=== PATIENT | female | born 1995 | race Caucasian/White ===

== ENCOUNTER 2023-09-13 21:51 | Emergency (ER) | payer SELFPAY ==
--- OUTSIDE RECORDS SUMMARY | 2023-09-13 21:56 | XMS REPORT | Continuity of Care Document ---
:1995 Author Organization [facility] t Address [address] [facility] [address] [place] [address] Care Team Providers Name Role Phone John Romero MD Primary Care Physician John Romero MD Attending Clinician RADHA PENN Attending Clinician Unavailable LYNDSEY CONTRERAS Attending Clinician Unavailable SCOOTER SELBY Attending Clinician Unavailable KACEY FONG Attending Clinician Unavailable Payers Payer Name Policy Type Policy Number Effective Date Expiration Date S ource Problems This patient has no known problems. Allergies, Adverse Reactions, Alerts This patient has no known allergies or adverse reactions. Family History Family Member Diagnosis Comments Start Date Stop Date Source Natural [facility] Natural mother Hypertension [facility] Social History Social Habit Start Date Stop Date Quantity Comments Source [facility] Alcohol intake 2022-07-29 2022-07-29 [facility] of [facility] 00:[facility] 00:00:00 alcohol (finding) Hospita l History of Social 2022-07-29 2022-07-[address] function 00:00:00 00:00:00 Hospital Tobacco use and 2022-07-01 2022-07-01 Smokeless tobacco [facility] exposure 00:00:00 00:00:00 non-user Hospital Alcohol Comment 2020-04-07 2020-04-[address] 00:00:00 00:00:00 Hospital Sex Assigned At [birth year] [facility] 00:[facility] Smoking Status Start Date Stop Date Source Never smoked tobacco [facility] Medications Ordered Filled Start Stop Current Ordering Indication Dosage Frequency Signature Comments Components Source Medication Medication Date Date Medication? Clinician (SIG) Name Name phentermine 2021-10- No [id number] 15mg QD Take 1 [facility] 15 MG 12-[address] capsule 00:00: 05:59 (15 mg Hospita 00 :00 total) by l mouth every morning for 30 days. phentermine 2021-10 No 15mg QD Take 1 [facility] 15 MG 11-[address] capsule 00:00: 00:00 (15 mg Hospita 00 :00 total) by l mouth every morning for 30 days. cyclobenzap 2021-10 No 5mg [id number] Take 1 [facility] 15 09-18 [id number] tablet (5 st (FLEXERIL) 00:00: 05:59 3D mg total) [facility]sp[facility] 5 mg tablet 00 :00 by mouth 3 l (three) times a day as needed for muscle spasms for up to 10 days. Immunizations Ordered Immunization Filled Immunization Date Status Commen ts Source Name Name Tdap Unknown Completed [facility] Procedures This patient has no known procedures. Plan of Care Planned Activity Planned Date Details Comments Source Future Scheduled 2023-08-20 Hepatitis C [facility] Test 09:33:04 screening (procedure) [code = 461347606] Future Scheduled 2023-08-20 Screening for [facility] Test 09:33:04 malignant neoplasm of cervix (procedure) [code = 016091977] Future Scheduled 2023-08-20 COVID-19 VACCINE (3 [facility] Test 09:33:04 - season) [code = COVID-19 VACCINE (3 - season)] Future Scheduled 2023-08-20 [facility]UENZA [facility]ACCINE [facility] Test 09:33:04 (#1) [code = INFLUENZA VACCINE (#1)] Encounters Start End Encounter Admission Attending Care Care Encounter Source Date/Time Date/Time Type Type Clinicians Facility Department ID 2022-10-19 2022-10-19 Refill Mirzaeva, 1.2.840.1 [id number] [facility] 00:00:00 00:00:00 Adolat [id number] 3.430.2.7 Hospit a .[id number] l .8 2022-07-29 2022-07-29 Outpatient DAVID, [facility] [id number] [place] 00:00:00 00:00:00 ADOLAT [address] 2022-07-01 2022-07-01 Outpatient DAVID, [facility] [id number] [place] 00:00:00 00:00:00 ADOLAT [address] 2021-01-01 2021-01-01 Emergency PENN, [place] [id number] [place] 00:00:00 00:00:00 RADHA 408 Method i 2020-11-04 2020-11-04 Emergency CONTRERAS, [facility] 06 [id number] [place] 00:00:00 00:00:00 LYNDSEY 211 Method i 2020-07-26 2020-07-26 Emergency SOLA, [facility] [id number] [place] 00:00:00 00:00:00 SCOOTER [address] 2020-04-07 2020-04-08 Emergency AJIT, [place] [address] [id number] [place] 00:00:00 00:00:00 KACEY [address] Results This patient has no known results.
[2023-09-13] MEDS ORDERED: PROMETHAZINE 25 MG TABLET ONE (22:53)
[2023-09-13] MEDS ORDERED: CYCLOBENZAPRINE 10 MG TAB ONE (22:53)
[2023-09-13] MEDS ORDERED: KETOROLAC 30 MG/ML INJ ONE (22:54)
[2023-09-13] MEDS ORDERED: CODEINE 30MG/APAP 300MG TAB ONE (22:54)
--- NOTE | 2023-09-14 00:40 | ER ---
Nurse's Notes [facility] Name: Shelley Redd Age: 27 yrs Sex: Female : 1995 Arrival Date: 09/13/2023 Time: 21:51 Bed 6 Private MD: Diagnosis: Contusion of right back wall of thorax;Mild acute lower back contusion, acute right flank contusion Presentation: 09/13 22:22 Chief complaint: Patient states: Fell this morning sideways in my living room. Now my vc1 back hurts really bad. Coronavirus screen: Vaccine status: Patient reports receiving the 2nd dose of the covid vaccine. Moderna Client denies travel out of the [place] in the last 14 days. At this time, the client does not indicate any symptoms associated with coronavirus-19. Ebola Screen: Patient negative for fever greater than or equal to 101.5 degrees Fahrenheit, and additional compatible Ebola Virus Disease symptoms Patient denies exposure to infectious person. Patient denies travel to an Ebola-affected area in the 21 days before illness onset. No symptoms or risks identified at this time. Initial Sepsis Screen: Does the patient meet any 2 criteria? No. Patient's initial sepsis screen is negative. Does the patient have a suspected source of infection? No. Patient's initial sepsis screen is negative. Risk Assessment: Do you want to hurt yourself or someone else? Patient reports no desire to harm self or others. Onset of symptoms was September 13, 2023. 22:22 Method Of Arrival: Ambulatory vc1 22:22 Acuity: MATHEW 3 vc1 Triage Assessment: 22:24 General: Appears in no apparent distress. uncomfortable, Behavior is calm, cooperative, vc1 appropriate for age. Pain: Complains of pain in right low back Pain does not radiate. Pain currently is 8 out of 10 on a pain scale. Quality of pain is described as sharp, tightness Pain began this morning. EENT: No deficits noted. No signs and/or symptoms were reported regarding the EENT system. Neuro: No deficits noted. Cardiovascular: No deficits noted. Respiratory: Airway is patent Respiratory effort is even, unlabored, Respiratory pattern is regular, symmetrical. GI: No deficits noted. No signs and/or symptoms were reported involving the gastrointestinal system. : No deficits noted. No signs and/or symptoms were reported regarding the genitourinary system. Derm: No deficits noted. No signs and/or symptoms reported regarding the dermatologic system. Musculoskeletal: Circulation, motion, and sensation intact. Range of motion: intact in all extremities, Reports pain in right low back. 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 - Social history:: Smoking status: Patient denies any tobacco usage or history of. - Family history:: not pertinent. Screenin:[address] [facility] ED Fall Risk Assessment (Adult) History of falling in the last 3 months, jw7 including since admission No falls in past 3 months (0 pts) Score/Fall Risk Level 0 - 2 = Low Risk Oriented to surroundings, Maintained a safe environment. Abuse screen: Denies threats or abuse. Denies injuries from another. Nutritional screening: No deficits noted. Tuberculosis screening: No symptoms or risk factors identified. Assessment: 22:30 General: see triage assessment . jw7 23:22 Reassessment: Patient appears in no apparent distress at this time. No changes from jw7 previously documented assessment. Patient and/or family updated on plan of care and expected duration. Pain level reassessed. Patient is alert, oriented x 3, equal unlabored respirations, skin warm/dry/pink. Neuro: Chi Agitation-Sedation Scale (RASS): 0 - Alert and Calm Level of Consciousness is awake, alert, obeys commands, Oriented to person, place, time, situation. 09/14 00:29 Reassessment: Patient appears in no apparent distress at this time. No changes from jw7 previously documented assessment. Patient and/or family updated on plan of care and expected duration. Pain level reassessed. Patient is alert, oriented x 3, equal unlabored respirations, skin warm/dry/pink. Vital Signs: 09/13 22:22 BP 148 / 87; Pulse 91; Resp 18; Temp 97.6; Pulse Ox 100% ; Weight 127.01 kg; Height 5 vc1 ft. 7 in. ; Pain 8/10; 23:22 BP 124 / 76; Pulse 84; Resp 17 S; Pulse Ox 99% on R/A; jw7 09/14 00:30 BP 134 / 86; Pulse 70; Resp 16 S; Pulse Ox 100% on R/A; jw7 09/13 22:22 Body Mass Index 43.85 (127.01 kg, 170.18 cm) vc1 09/13 22:22 Pain Scale: Adult vc1 ED Course: 09/13 21:56 Patient arrived in ED. kj1 22:03 German Hdez MD is Attending Physician. sp4 22:22 Colin Guo, DONALD is Primary Nurse. jj7 22:23 Triage completed. vc1 22:25 Arm band placed on left wrist. vc1 22:30 Patient has correct armband on for positive identification. Bed in low position. Call jw light in reach. 09/14 00:08 CT Lumbar Spine Wo Con In Process Unspecified. EDMS 00:58 No provider procedures requiring assistance completed. Patient did not have IV access j7 during this emergency room visit. Administered Medications: 09/13 22:54 Drug: Ketorolac IM 60 mg IM once {Note: 30mg in L Deltoid and 30mg in R Deltoid .} jw7 Route: IM; Site: left deltoid; 09/14 01:00 Follow up: Response: Marked relief of symptoms jj7 09/13 22:54 Drug: Cyclobenzaprine PO 10 mg PO once Route: PO; jw7 09/14 01:00 Follow up: Response: Marked relief of symptoms j7 09/13 22:54 Drug: Promethazine PO 25 mg PO once Route: PO; jw7 09/14 01:02 Follow up: Response: Marked relief of symptoms j7 09/13 22:55 Drug: Acetaminophen-Codeine PO (300 mg-30 mg) 2 tabs PO once; RASS on ADMIN: kalyani Ramirez Very Agttd3, Agttd2, Rstlss1, AlertClm0, Drwsy-1, Lt Sdtn-2, Mod Sdtn-3, Dp Sdtn-4, UnArsble-5 Route: PO; 09/14 01:01 Follow up: Response: Marked relief of symptoms j7 00:50 Drug: [place] PO 10 mg-325 mg 1 tabs PO once Route: PO; jj7 01:02 Follow up: Response: No adverse reaction j7 00:50 Drug: Diazepam PO 5 mg PO once Route: PO; jj7 01:02 Follow up: Response: No adverse reaction j 00:50 Drug: Ibuprofen PO 800 mg PO once Route: PO; j7 01:02 Follow up: Response: No adverse reaction jj7 Medication: 00:58 VIS not applicable for this client. jj7 Outcome: 00:40 Discharge ordered by sp4 00:58 Discharged to home ambulatory, with family, jj7 00:58 Condition: improved 00:58 Condition: improved 00:58 Discharge instructions given to patient, :58 Discharge instructions given to patient, Instructed on discharge instructions, medication usage, Demonstrated understanding of instructions, medications, Prescriptions given X 3, 01:02 Patient left the ED. jj7 Signatures: Dispatcher [employer] EDMS Najma Rodriguez kj1 Janis Franco RN RN vc1 Lima Ricks RN RN jw7 Colin Guo RN RN jj7 German Hdez MD MD sp4 Corrections: (The following items were deleted from the chart) 09/13 22:23 22:23 PMHx: Unable to Obtain; vc1 vc1
--- NOTE | 2023-09-14 00:40 | EDPHYS ---
Physician Documentation [facility] Name: Shelley Redd Age: 27 yrs Sex: Female : 1995 Arrival Date: 09/13/2023 Time: 21:51 Bed 6 Private MD: ED Physician German Hdez HPI: 09/13 22:04 This 27 yrs old Female presents to ER via Unassigned with complaints of Back sp4 Pain. 09/14 03:25 Patient states she has sustained an acute accidental fall onto her right posterior back sp4 prior to arrival. Now patient has right lower posterior back pain associated with pain down the right leg. Pain is worse with ambulation. Patient reports no weakness in the leg. . 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 - Social history:: Smoking status: Patient denies any tobacco usage or history of. - Family history:: not pertinent. ROS: 09/14 03:25 Constitutional: Negative for fever, chills, and weight loss, positive for back pain, sp4 right lower flank pain, positive for pain radiation down the right leg All other systems are negative, Exam: 03:25 Constitutional: This is a well developed, well nourished patient who is awake, alert, sp4 and in no acute distress. Head/Face: Normocephalic, atraumatic. Eyes: Pupils equal round and reactive to light, extra-ocular motions intact. Lids and lashes normal. Conjunctiva and sclera are not injected. Cornea within normal limits. Periorbital areas with no swelling, redness, or edema. ENT: Nares patent. No nasal discharge, no septal abnormalities noted. Tympanic membranes are normal and external auditory canals are clear. Oropharynx with no redness, swelling, or masses, exudates, or evidence of obstruction, uvula midline. Mucous membranes moist. Neck: Trachea midline, no thyromegaly or masses palpated, and no cervical lymphadenopathy. Supple, full range of motion without nuchal rigidity, or vertebral point tenderness. Chest/axilla: Normal chest wall appearance and motion. Nontender with no deformity. No lesions are appreciated. Cardiovascular: Regular rate and rhythm with a normal S1 and S2. No gallops, murmurs, or rubs. Normal PMI, no JVD. No pulse deficits. Respiratory: Lungs have equal breath sounds bilaterally, clear to auscultation and percussion. No rales, rhonchi or wheezes noted. No increased work of breathing, no retractions or nasal flaring. Abdomen/GI: Soft, non-tender, with normal bowel sounds. No distension or tympany. No guarding or rebound. No evidence of tenderness throughout. Back: No spinal tenderness. No costovertebral tenderness. Skin: Warm, dry with normal turgor. Normal color with no rashes, no lesions, and no evidence of cellulitis. MS/ Extremity: Pulses equal, no cyanosis. Neurovascular intact. Full, normal range of motion. Neuro: Awake and alert, GCS 15, oriented to person, place, time, and situation. Cranial nerves II-XII grossly intact. Motor strength 5/5 in all extremities. Sensory grossly intact. Normal gait Psych: Awake, alert, with orientation to person, place and time. Behavior, mood, and affect are within normal limits Vital Signs: 09/13 22:22 BP 148 / 87; Pulse 91; Resp 18; Temp 97.6; Pulse Ox 100% ; Weight 127.01 kg; Height 5 vc1 ft. 7 in. ; Pain 8/10; 23:22 BP 124 / 76; Pulse 84; Resp 17 S; Pulse Ox 99% on R/A; jw7 09/14 00:30 BP 134 / 86; Pulse 70; Resp 16 S; Pulse Ox 100% on R/A; jw7 09/13 22:22 Body Mass Index 43.85 (127.01 kg, 170.18 cm) vc1 09/13 22:22 Pain Scale: Adult vc1 MDM: 09/13 22:04 Patient medically screened. sp4 09/14 03:25 Differential diagnosis: arthritis, chronic back pain, Fatigue Ligament Injury Obesity sp4 ruptured disc, Scoliosis. Data reviewed: vital signs, nurses notes, lab test result(s), UPT: negative radiologic studies, CT scan. Consideration of Admission/Observation Escalation of care including admission/observation considered. ED course: Patient has normal neurologic exam and normal gait. Medications have improved the pain. Patient will be advised to have 3 days of bedrest , will discharge home with as needed pain medication. . 09/13 22:03 Order name: Test, Urine; Complete Time: 03:25 sp4 09/13 22:21 Order name: CT Lumbar Spine Wo Con sp4 Administered Medications: 09/13 22:54 Drug: Ketorolac IM 60 mg IM once {Note: 30mg in L Deltoid and 30mg in R Deltoid .} jw7 Route: IM; Site: left deltoid; 09/14 01:00 Follow up: Response: Marked relief of symptoms jj7 09/13 22:54 Drug: Cyclobenzaprine PO 10 mg PO once Route: PO; jw7 09/14 01:00 Follow up: Response: Marked relief of symptoms jj7 09/13 22:54 Drug: Promethazine PO 25 mg PO once Route: PO; jw7 09/14 01:02 Follow up: Response: Marked relief of symptoms jj7 09/13 22:55 Drug: Acetaminophen-Codeine PO (300 mg-30 mg) 2 tabs PO once; RASS on ADMIN: Combtv4, jw7 Very Agttd3, Agttd2, Rstlss1, AlertClm0, Drwsy-1, Lt Sdtn-2, Mod Sdtn-3, Dp Sdtn-4, UnArsble-5 Route: PO; 09/14 01:01 Follow up: Response: Marked relief of symptoms j7 00:50 Drug: [place] PO 10 mg-325 mg 1 tabs PO once Route: PO; jj7 01:02 Follow up: Response: No adverse reaction j 00:50 Drug: Diazepam PO 5 mg PO once Route: PO; j7 01:02 Follow up: Response: No adverse reaction j 00:50 Drug: Ibuprofen PO 800 mg PO once Route: PO; 01:02 Follow up: Response: No adverse reaction jj7 Disposition Summary: 09/14/23 00:40 Discharge Ordered Problem: new sp4 Symptoms: have improved sp4 Condition: Stable sp4 Diagnosis - Contusion of right back wall of thorax sp4 - Mild acute lower back contusion, acute right flank contusion sp4 Followup: sp4 - With: Private Physician - When: 7 - 10 days - Reason: Recheck today's complaints Discharge Instructions: - Discharge Summary Sheet sp4 - Acute Back Pain, Adult sp4 Forms: - Patient Portal Instructions sp4 Prescriptions: - Ibuprofen 800 mg Oral tablet - take 1 tablet ORAL route every 6 hours As needed take with food; 30 tablet; sp4 Refills: 0, Product Selection Permitted - Cyclobenzaprine 10 mg Oral Tablet - take 1 tablet ORAL route every 8 hours As needed; 30 tablet; Refills: 0, sp4 Product Selection Permitted - Tramadol 50 mg Oral tablet - take 1 tablet ORAL route every 6 hours as needed; 20 tablet; Refills: 0, sp4 Product Selection Permitted Signatures: Dispatcher [employer] EDJanis Lofton RN RN vc1 Lima Ricks RN RN jw7 Colin Guo RN RN jj7 German Hdez MD MD sp4 Corrections: (The following items were deleted from the chart) 09/13 22:23 22:23 PMHx: Unable to Obtain; vc1 vc1
[2023-09-14] MEDS ORDERED: HYDROCODONE/APAP 10/325 TAB ONE (00:55)
[2023-09-14] MEDS ORDERED: DIAZEPAM 5 MG TABLET ONE (00:55)
[2023-09-14] MEDS ORDERED: IBUPROFEN 400 MG TAB ONE (00:56)
[2023-09-14 01:14] VITALS: TEMP 97.6
[2023-09-14 01:17] VITALS: BP 134/86; O2SAT 100
--- NOTE | 2023-09-16 13:45 | RAD REPORT ---
EXAM DESCRIPTION: CT - Spine Lumbar Wo Con - 09/14/2023 6:34 am CLINICAL HISTORY: Female, 27 years old, lumbar pain after a fall COMPARISON: None. TECHNIQUE: CT acquisition of the lumbar spine without contrast. Coronal and sagittal reformatted sunita ges provided. This exam was performed according to departmental dose-optimization program which inclu bi automated exposure control, adjustment of the mA and/or kV according to patient size, and/or use of iterative reconstruction technique. FINDINGS: Morphology: No fracture. Vertebral body heights are normal. Transitional anatomy with 5 no nrib-bearing vertebrae and a partially lumbarized appearing S1 segment. Chronic bilateral L5 pars def ects. Alignment: No traumatic listhesis. Straightening of normal lordotic curvature. Disc Levels: Within normal limits. Other: The imaged osseous pelvis is intact. No acute finding of the imaged abdominopelvic contents an d paraspinal soft tissues. IMPRESSION: 1. No acute osseous finding of the lumbar spine. 2. Mild transitional anatomy. Bilateral L5 spondylolysis without listhesis. Electronically signed by: Eric Harrington MD 09/14/2023 12:16 AM ASSISTANT FITNESS MANAGER Due to temporary technical issues with the PACS/Fluency reporting system, reports are being signed by the in house radiologists without review as a courtesy to insure prompt reporting. The interpreting radiologist is fully responsible for the content of the report.
== END 2023-09-14 01:02 | disposition home or self-care (01) ==
LOC: ER 21:51
DX: S30.0XXA Contusion of lower back and pelvis, initial encounter (principal); S20.221A Contusion of right back wall of thorax, initial encounter; S30.1XXA Contusion of abdominal wall, initial encounter
CPT/HCPCS: 72131; 81025; 96372; 99284; Q0169

== ENCOUNTER 2023-09-24 16:40 | Emergency (ER) | payer OTHER, SELFPAY ==
--- OUTSIDE RECORDS SUMMARY | 2023-09-24 16:43 | XMS REPORT | Continuity of Care Document ---
:1995 Author Organization [facility] t Address [address] [place] [address] Care Team Providers Name Role Phone John [...] Date Stop Date Source Natural [facility] Hy[facility] Natural mother Hypert[facility] Social History Social Habit Start Date Stop [...] 00:00:00 Hospital Sex Assigned At [birth year] [facility] 00:[facility]00 [facility] Smoking Status Start Date Stop Date Source Never smoked tobacco [facility] Medications Ordered Filled Start Stop Current Ordering Indication Dosage Frequency Signature Comments Components Source Medication Medication Date Date Medication? Clinician (SIG) Name Name phentermine 2021-10 No [id number] 15mg QD Take 1 [facility] 15 MG 12-[address] capsule 00:00: 05:59 (15 mg Hospita 00 :00 total) by l mouth every morning for 30 days. phentermine 2021-10 No [id number] 15mg QD Take 1 [facility] 15 MG -11-[address] capsule 00:00: 05:59 (15 mg Hospita 00 :00 total) by l mouth every morning for 30 days. phentermine 2021-10 No 15mg QD Take 1 [facility] 15 MG 1-15 10-[address] capsule 00:00: 00:00 (15 mg Hospita 00 :00 total) by l mouth every morning for 30 days. phentermine 2021-10 No 15mg QD Take 1 [facility] 15 MG 1-15 10-[address] capsule 00:00: 00:00 (15 mg Hospita 00 :00 total) by l mouth every morning for 30 days. cyclobenzap 2021-10 No 5mg Q.[id number] Take 1 [facility] rine 1-15 11-26 [id number] tablet (5 st (FLEXERIL) 00:00: 05:59 3D mg total) H [facility]spita 5 mg tablet 00 :00 by mouth 3 l (three) times a day as needed for muscle spasms for up to 10 days. Immunizations Ordered Immunization Filled Immunization Date Status Commen ts Source Name Name Tdap Unknown Completed [facility] Tdap Unknown Completed [facility] Procedures This patient has no known procedures. Plan of Care Planned Activity Planned Date Details Comments Source Future Scheduled 2023-09-[address] [facility]spital Test 08:46:24 screening (procedure) [code = 484722284] Future Scheduled 2023-09-24 Screening for [facility] Test 08:46:24 malignant neoplasm of cervix (procedure) [code = 280965533] Future Scheduled 2023-09-24 COVID-19 VACCINE (3 [facility] Test 08:46:24 - season) [code = COVID-19 VACCINE ( season)] Future Scheduled 2023-09-24 INFLUENZA VACCINE [facility] 08:46:24 (#1) [code = INFLUENZA VACCINE (#1)] Future Scheduled 2023-08-20 [facility] Test 09:33:04 screening (procedure) [code = 344699663] Future Scheduled 2023-08-20 [facility] for [facility] Test 09:33:04 malignant neoplasm of cervix (procedure) [code = 825343019] Future Scheduled 2023-08-20 COVID-19 VACCINE (3 [facility] Test 09:33:04 - season) [code = COVID-19 VACCINE ( season)] Future Scheduled 2023-08-20 INFLUENZA VACCINE [facility] Test 09:33:04 (#1) [code = INFLUENZA VACCINE (#1)] Encounters Start End Encounter Admission Attending Care Care Encounter Source Date/Time Date/Time Type Type Clinicians Facility Department ID 2022-10-19 2022-10-19 Refill Mirzaeva, 1.2.840.1 [id number] [facility] 00:00:00 00:00:[address] 3.430.2.7 Hospit a .3.152566 l .8 2022-10-19 2022-10-19 Refill Mirzaeva, 1.2.840.1 [id number] [facility] 00:00:00 00:00:[address] 3.430.2.7 Hospit a .3.467708 l .8 2022-07-29 2022-07-29 Outpatient DAVID, [facility] [id number] [place] 00:00:00 00:00:00 ADOLAT [address] 2022-07-01 2022-07-01 Outpatient DAVID, [facility] [id number] [place] 00:00:00 00:00:00 ADOLAT [address] 2021-01-01 2021-01-01 Emergency PENN, [facility] [id number] [place] 00:00:00 00:00:00 RADHA [address] 2020-11-04 2020-11-04 Emergency CONTRERAS, [place] [id number] [place] 00:00:00 00:00:00 LYNDSEY [address] 2020-07-26 2020-07-26 Emergency SOLA, [place] [address] [id number] [place] 00:00:00 00:00:00 SCOOTER [address] 2020-04-07 2020-04-08 Emergency AJIT, [facility] [id number] [place] 00:00:00 00:00:[address] KACEY [address] Results This patient has no known results.
[2023-09-24 17:19] LABS: Absolute Lymphocytes (CBC) 1.8 K/uL (0.7-4.9); Hematocrit 38.7 % (36.0-45.0); Lymphocytes % 16.4 % (15.3-44.8); MCV 80.9 fL (80-100); MPV 8.2 fL (7.6-11.3); Platelets 237 thou/uL (152-406); RBC Red Blood Cell Count 4.79 M/uL (3.86-4.86)
[2023-09-24] MEDS ORDERED: KETOROLAC 30 MG/ML INJ ONE (17:31)
[2023-09-24] MEDS ORDERED: NA CHLORIDE 0.9% 1,000 ML ONE (17:31)
[2023-09-24] MEDS ORDERED: ONDANSETRON 4 MG/2 ML VIAL ONE (17:31)
[2023-09-24 17:34] LABS: Potassium 3.5 mEq/L (3.5-5.1)
[2023-09-24 17:55] LABS: Specific Gravity 1.015 (1.005-1.030)
[2023-09-24 17:57] LABS: Specific Gravity 1.015 (1.005-1.030); Urine Bacteria None Seen /HPF (<20); Urine Bilirubin NEGATIVE (Negative); Urine Blood 1+ (Negative); Urine Clarity Extremely Turbid (Clear); Urine Color Light-Yellow (Yellow); Urine Glucose NEGATIVE (Negative); Urine Mucus Slight /HPF (None Seen); Urine Protein NEGATIVE (Negative); Urine RBC <5 /HPF (None Seen); Urine Urobilinogen Normal (Normal)
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
[2023-09-24] MEDS ORDERED: FENTANYL CITR 100 MCG/2 ML ONE (18:18)
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
[2023-09-24] MEDS ORDERED: DIAZEPAM 5 MG TABLET ONE (19:34)
[2023-09-24] MEDS ORDERED: HYDROCODONE/APAP 5/325 MG TAB ONE (20:11)
[2023-09-24 20:29] VITALS: TEMP 98.3
[2023-09-24 20:36] VITALS: BP 130/81; O2SAT 98
== END 2023-09-24 20:14 | disposition home or self-care (01) ==
LOC: ER 16:40
DX: S16.1XXA Strain of muscle, fascia and tendon at neck level, initial encounter (principal); R29.91 Unspecified symptoms and signs involving the musculoskeletal system; V49.49XA Driver injured in collision with other motor vehicles in traffic accident, initial encounter
CPT/HCPCS: 96361; 85025; 81001; 80048; 36415; 86900; 86850; 81025; 86901; 70450; 71250; 72125; 96375; 96374; 99284; J3010; J2405; J7030

== ENCOUNTER → 2023-11-24 | Emergency (ER) | payer SELFPAY ==
[~2023-11-24] MED LIST: ACETAMINOPHEN 500 MG TAB ONE; AZITHROMYCIN 250 MG TAB ONE
[2023-11-24 11:02] LABS: Specific Gravity 1.012 (1.005-1.030)
[2023-11-24 11:03] LABS: Specific Gravity 1.012 (1.005-1.030); Urine Bacteria None Seen /HPF (<20); Urine Bilirubin NEGATIVE (Negative); Urine Blood 3+ (Negative); Urine Clarity Turbid (Clear); Urine Color Light-Yellow (Yellow); Urine Glucose NEGATIVE (Negative); Urine Protein NEGATIVE (Negative); Urine RBC <5 /HPF (None Seen); Urine Urobilinogen Normal (Normal)
--- NOTE | 2023-11-24 11:19 | RAD REPORT ---
EXAM DESCRIPTION: RAD - Chest Pa And Lat (2 Views) - 11/24/2023 11:06 am CLINICAL HISTORY: COUGH COMPARISON: No comparisons FINDINGS: Lines: None. Lungs: No evidence of edema or pneumonia. Pleural: No significant pleural effusions or pneumothorax. Cardiac: The heart size is within normal limits. Mediastinum: Within normal limits. Bones: No acute fractures. Other: None IMPRESSION: No acute cardiopulmonary disease.
[2023-11-24 11:51] LABS: SARS-CoV-2 Antigen Rapid Res Negative (Negative)
--- NOTE | 2023-11-24 12:12 | EDPHYS ---
Physician Documentation [facility] Name: Shelley Redd Age: 28 yrs Sex: Female : 1995 Arrival Date: 11/24/2023 Time: 10:23 Bed 19 Private MD: ED Physician Aaron Preston HPI: 11/24 12:06 This 28 yrs old Female presents to ER via Ambulatory with complaints of Fever, Cough, denise Congestion. 12:06 The patient reports fever, that was measured at 100 degrees Fahrenheit. Onset: The denise symptoms/episode began/occurred 2 day(s) ago. Modifying factors: there are no obvious modifying factors. Associated signs and symptoms: Pertinent positives: chills, cough, runny nose. Severity of symptoms: At their worst the symptoms were moderate in the emergency department the symptoms have improved mildly. The patient has not experienced similar symptoms in the past. 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 - Social history:: Smoking status: Patient denies any tobacco usage or history of. ROS: 12:08 Constitutional: Negative for fever, chills, and weight loss, Eyes: Negative for injury, denise pain, redness, and discharge, ENT: Negative for injury, pain, and discharge, Neck: Negative for injury, pain, and swelling, Cardiovascular: Negative for chest pain, palpitations, and edema, Abdomen/GI: Negative for abdominal pain, nausea, vomiting, diarrhea, and constipation, Back: Negative for injury and pain, : Negative for injury, bleeding, discharge, and swelling, MS/Extremity: Negative for injury and deformity, Skin: Negative for injury, rash, and discoloration, Neuro: Negative for headache, weakness, numbness, tingling, and seizure, Psych: Negative for depression, anxiety, suicide ideation, homicidal ideation, and hallucinations, Allergy/Immunology: Negative for hives, rash, and allergies, Endocrine: Negative for neck swelling, polydipsia, polyuria, polyphagia, and marked weight changes, Hematologic/Lymphatic: Negative for swollen nodes, abnormal bleeding, and unusual bruising, 12:08 Respiratory: Positive for cough, with no reported sputum, Exam: 12:08 Constitutional: This is a well developed, well nourished patient who is awake, alert, denise and in no acute distress. Head/Face: Normocephalic, atraumatic. Eyes: Pupils equal round and reactive to light, extra-ocular motions intact. Lids and lashes normal. Conjunctiva and sclera are non-icteric and not injected. Cornea within normal limits. Periorbital areas with no swelling, redness, or edema. ENT: Nares patent. No nasal discharge, no septal abnormalities noted. Tympanic membranes are normal and external auditory canals are clear. Oropharynx with no redness, swelling, or masses, exudates, or evidence of obstruction, uvula midline. Mucous membranes moist. Neck: Trachea midline, no thyromegaly or masses palpated, and no cervical lymphadenopathy. Supple, full range of motion without nuchal rigidity, or vertebral point tenderness. No Meningismus. Chest/axilla: Normal chest wall appearance and motion. Nontender with no deformity. No lesions are appreciated. Cardiovascular: Regular rate and rhythm with a normal S1 and S2. No gallops, murmurs, or rubs. Normal PMI, no JVD. No pulse deficits. Abdomen/GI: Soft, non-tender, with normal bowel sounds. No distension or tympany. No guarding or rebound. No evidence of tenderness throughout. Back: No spinal tenderness. No costovertebral tenderness. Full range of motion. Skin: Warm, dry with normal turgor. Normal color with no rashes, no lesions, and no evidence of cellulitis. MS/ Extremity: Pulses equal, no cyanosis. Neurovascular intact. Full, normal range of motion. Neuro: Awake and alert, GCS 15, oriented to person, place, time, and situation. Cranial nerves II-XII grossly intact. Motor strength 5/5 in all extremities. Sensory grossly intact. Cerebellar exam normal. Normal gait. Psych: Awake, alert, with orientation to person, place and time. Behavior, mood, and affect are within normal limits. 12:08 Respiratory: the patient does not display signs of respiratory distress, Respirations: normal, Breath sounds: are clear throughout, no bronchial sounds, no decreased breath sounds, no rales, rhonchi, no stridor, no wheezing, Vital Signs: 10:33 BP 146 / 96; Pulse 75; Resp 16; Temp 98.7; Pulse Ox 100% ; Weight 129.27 kg; Height 5 ll1 ft. 7 in. ; Pain 5/10; 10:50 BP 140 / 90; Pulse 72; Resp 18; Temp 98.6(O); Pulse Ox 99% on R/A; rs5 11:50 BP 137 / 75; Pulse 92; Resp 16; Pulse Ox 99% on R/A; me1 10:33 Body Mass Index 44.64 (129.27 kg, 170.18 cm) ll1 10:33 Pain Scale: Adult ll1 MDM: 10:28 Patient medically screened. [facility] 12:09 Antibiotic administration: The patient is discharged and will get outpatient [facility] antibiotics, Zithromax. Differential diagnosis: bronchitis, flu, URI, viral Infection, bacterial infection, URI, bronchitis, pneumonia. Differential Diagnosis: Obstructed Airway Bronchitis Influenza Upper Respiratory Infection Sinusitis Pharyngitis Otitis Media Asthma Exacerbation Viral Syndrome. Data reviewed: vital signs, nurses notes, lab test result(s), Flu: negative. Consideration of Admission/Observation Escalation of care including admission/observation considered. I considered the following discharge prescriptions or medication management in the emergency department Medications were administered in the Emergency Department. See MAR. Independent interpretation of the following test(s) in the Emergency Department X-Ray: My interpretation is cxr neg. Test considered but Not performed: Labs: no cbc, no comp met. 11/24 10:32 Order name: Urinalysis w/ reflexes; Complete Time: 11:07 [facility] 11/24 10:32 Order name: PREGU; Complete Time: 11:07 [facility] 11/24 10:32 Order name: SARS RAPID; Complete Time: 12:05 [facility] 11/24 10:32 Order name: Flu; Complete Time: 12:05 [facility] 11/24 10:32 Order name: Chest Pa And Lat (2 Views) XRAY; Complete Time: 11:49 [facility] Administered Medications: 10:40 Drug: AZITHromycin PO 500 mg PO once Route: PO; rs5 12:36 Follow up: Response: No adverse reaction me1 10:40 Drug: Acetaminophen PO 1000 mg PO once Route: PO; rs5 12:36 Follow up: Response: No adverse reaction me1 Disposition Summary: 02/01/24 12:11 Discharge Ordered Notes: Location: Home [facility] Problem: new [facility] Symptoms: have improved denise Condition: Stable denise Diagnosis - Acute upper respiratory infection, unspecified denise - Cough denise - Fever, unspecified denise Followup: [facility] - With: Private Physician - When: 2 - 3 days - Reason: Recheck today's complaints, Continuance of care, Re-evaluation by your physician Discharge Instructions: - Discharge Summary Sheet denise - Fever, Adult denise - Upper Respiratory Infection, Adult denise - Cool Mist Vaporizer denise - Upper Respiratory Infection, Adult, Zhyw-sc-Ogyn denise - Cough, Adult, Pzkq-qd-Aesp denise - Viral Respiratory Infection, Fijt-Ee-Mkpy denise - Cough, Adult denise - Fever, Adult, Lopj-ki-Bknq denise Forms: - Medication Reconciliation Form [facility] - Thank You Letter [facility] - Antibiotic Education [facility] - Prescription Opioid Use [facility] - Patient Portal Instructions denise - Leadership Thank You Letter denise - Work release form me1 Prescriptions: - Radha-D 12 Hour 60-120 mg Oral Tablet Sustained Release 12 hr - take 1 tablet ORAL route every 12 hours As needed; 20 tablet; Refills: 0, [facility] Product Selection Permitted - Tessalon Perles 100 mg Oral capsule - take 2 capsule ORAL route every 8 hours As needed; 30 capsule; Refills: 0, [facility] Product Selection Permitted - Zithromax 500 mg Oral tablet - take 1 tablet ORAL route once daily for 4 days; 4 tablet; Refills: 0, Product [facility] Selection Permitted Signatures: Dispatcher [employer] Aaron Whiteside MD MD cha Lewis, Lynsay RN RN ll1 Rajendra Orellana RN RN rs5 Nina Kaur RN me1 Corrections: (The following items were deleted from the chart) 10:33 10:33 PMHx: Unable to Obtain; 1 ll1
--- NOTE | 2023-11-24 12:12 | ER ---
Nurse's Notes [facility] Name: Shelley Redd Age: 28 yrs Sex: Female : 1995 Arrival Date: 11/24/2023 Time: 10:23 Bed 19 Private MD: Diagnosis: Acute upper respiratory infection, unspecified;Cough;Fever, unspecified Presentation: 11/24 10:33 Chief complaint: Patient states: Cough, LEONG, sore throat started yesterday. 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 Coronavirus screen: Vaccine status: Patient reports receiving the 2nd dose of the covid vaccine. Client denies travel out of the [place] in the last 14 days. congestion, cough unrelated to allergies, fatigue, fever, headache, sore throat, Client presents with at least one sign or symptom that may indicate coronavirus-19. Standard/surgical mask placed on the client. Ebola Screen: Patient denies travel to an Ebola-affected area in the 21 days before illness onset. Initial Sepsis Screen: Does the patient meet any 2 criteria? No. Patient's initial sepsis screen is negative. Does the patient have a suspected source of infection? Yes: Productive cough/pneumonia. Risk Assessment: Do you want to hurt yourself or someone else? Patient reports no desire to harm self or others. Onset of symptoms was November 23, 2023. 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 - Social history:: Smoking status: Patient denies any tobacco usage or history of. Screenin:30 [facility] ED Fall Risk Assessment (Adult) History of falling in the last 3 months, rs5 including since admission No falls in past 3 months (0 pts) Confusion or Disorientation No (0 pts) Intoxicated or Sedated No (0 pts) Impaired Gait No (0 pts) Mobility Assist Device Used No (0 pt) Altered Elimination No (0 pt) Score/Fall Risk Level 0 - 2 = Low Risk Oriented to surroundings, Maintained a safe environment. Abuse screen: Denies threats or abuse. Nutritional screening: No deficits noted. Tuberculosis screening: No symptoms or risk factors identified. Assessment: 10:30 General: Appears in no apparent distress. comfortable, Behavior is calm, cooperative. rs5 Pain: Complains of pain in generalized body aches Pain does not radiate. Pain currently is 3 out of 10 on a pain scale. Quality of pain is described as aching, Is continuous. Neuro: Level of Consciousness is awake, alert, obeys commands, Oriented to person, place, time, situation. Cardiovascular: Heart tones S1 S2 present Patient's skin is warm and dry. Rhythm is regular. Respiratory: Airway is patent Respiratory effort is even, unlabored, Respiratory pattern is regular, symmetrical, Breath sounds are clear bilaterally. GI: Abdomen is round non-distended, Bowel sounds present X 4 quads. Abd is soft and non tender X 4 quads. : No signs and/or symptoms were reported regarding the genitourinary system. EENT: No signs and/or symptoms were reported regarding the EENT system. Derm: Skin is intact, Skin is pink, warm \T\ dry. 10:30 Musculoskeletal: Range of motion: intact in all extremities. rs5 Vital Signs: 10:33 BP 146 / 96; Pulse 75; Resp 16; Temp 98.7; Pulse Ox 100% ; Weight 129.27 kg; Height 5 ll1 ft. 7 in. ; Pain 5/10; 10:50 BP 140 / 90; Pulse 72; Resp 18; Temp 98.6(O); Pulse Ox 99% on R/A; rs5 11:50 BP 137 / 75; Pulse 92; Resp 16; Pulse Ox 99% on R/A; me1 10:33 Body Mass Index 44.64 (129.27 kg, 170.18 cm) ll1 10:33 Pain Scale: Adult ll1 ED Course: 10:24 Patient arrived in ED. rg4 10:28 Aaron Preston MD is Attending Physician. denise 10:30 Patient has correct armband on for positive identification. Bed in low position. Call rs5 light in reach. Side rails up X2. 10:33 Arm band placed on Patient placed in an exam room, on a stretcher. ll1 10:35 Triage completed. ll1 10:35 Orellana, Rajendra, RN is Primary Nurse. rs5 10:50 No provider procedures requiring assistance completed. rs5 11:07 Chest Pa And Lat (2 Views) XRAY In Process Unspecified. EDMS 12:41 Patient did not have IV access during this emergency room visit. me1 12:42 Provided Education on: POC. Verbalized understanding. . me1 Administered Medications: 10:40 Drug: AZITHromycin PO 500 mg PO once Route: PO; rs5 12:36 Follow up: Response: No adverse reaction me1 10:40 Drug: Acetaminophen PO 1000 mg PO once Route: PO; rs5 12:36 Follow up: Response: No adverse reaction me1 Medication: 10:50 VIS not applicable for this client. rs5 Outcome: 12:11 Discharge ordered by . denise 12:41 Discharged to home ambulatory, with significant other, [facility] 12:41 Condition: stable 12:41 Discharge instructions given to patient, significant other, Instructed on discharge instructions, follow up and referral plans. medication usage, Demonstrated understanding of instructions, follow-up care, medications, Prescriptions given X 3, 12:42 Patient left the ED. me1 Signatures: Dispatcher [employer] Aaron Whiteside MD MD cha Garcia, Rubi rg4 Filemon Cardoza RN RN ll1 Rajendra Orellana, RN RN rs5 Nina Kaur, DONALD RN me1 Corrections: (The following items were deleted from the chart) 10:33 10:33 PMHx: Unable to Obtain; 1 ll1
[2023-11-24 13:27] VITALS: BP 137/75; TEMP 98.6; O2SAT 99
== END ==
LOC: ER 10:23
DX: J06.9 Acute upper respiratory infection, unspecified (principal); R05.9 Cough, unspecified; Z11.52 Encounter for screening for COVID-19
CPT/HCPCS: 36415; 71046; 81001; 81025; 87804; 87811

== ENCOUNTER → 2024-01-08 | Emergency (ER) | payer SELFPAY ==
--- NOTE | 2024-01-08 23:36 | EDPHYS ---
Physician Documentation [facility] Name: Shelley Redd Age: 28 yrs Sex: Female : 1995 Arrival Date: 01/08/2024 Time: 22:08 Bed DX3 Private MD: ED Physician Celine Mcintyre HPI: 01/07 23:35 This 28 yrs old Female presents to ER via Ambulatory with complaints of Flu Symptoms. kb 23:35 Pt is a 28 year old female who presents with cough and congestion that started today. kb denies fever, chills, bodyaches, shortness of breath. Historical: - Allergies: 22:16 No Known Allergies; cm10 - Home Meds: 22:16 None [Active]; cm10 - PMHx: 22:16 None; cm10 - PSHx: 22:16 Appendectomy; cm10 - Immunization history:: Adult Immunizations up to date. - Social history:: Smoking status: Patient denies any tobacco usage or history of. ROS: 23:35 Constitutional: As per HPI kb Exam: 23:35 Constitutional: This is a well developed, well nourished patient who is awake, alert, kb and in no acute distress. Head/Face: Normocephalic, atraumatic. ENT: Moist Mucous membranes Cardiovascular: Regular rate Respiratory: Respirations even and unlabored. No increased work of breathing. Talking in full sentences Abdomen/GI: Soft, non-tender. No distention Skin: Warm, dry with normal turgor. Normal color. MS/ Extremity: Pulses equal, no cyanosis. Neurovascular intact. Full, normal range of motion. Neuro: Awake and alert, GCS 15, oriented to person, place, time, and situation. Moves all extremities. Normal gait. Vital Signs: 22:14 BP 134 / 107; Pulse 96; Resp 16; Temp 97.1; Pulse Ox 100% on R/A; Weight 127.01 kg; cm10 Height 5 ft. 7 in. ; Pain 6/10; 22:14 Body Mass Index 43.85 (127.01 kg, 170.18 cm) cm10 22:14 Pain Scale: Adult cm10 MDM: 22:12 Patient medically screened. kb 23:35 Differential Diagnosis: Other Flu, COVID, URI. Data reviewed: vital signs, nurses kb notes. Counseling: I had a detailed discussion with the patient and/or guardian regarding the historical points, exam findings, and any diagnostic results supporting the discharge/admit diagnosis, lab results, the need for outpatient follow up, a family practitioner, to return to the emergency department if symptoms worsen or persist or if there are any questions or concerns that arise at home. 01/07 22:17 Order name: Flu kb 01/07 22:17 Order name: COVID-19 SARS RT PCR; Complete Time: 23:36 kb Administered Medications: No medications were administered Disposition Summary: 01/08/24 23:36 Discharge Ordered Notes: Location: Home kb Condition: Stable kb Diagnosis - SARS-associated coronavirus as the cause of diseases classified elsewhere kb Followup: kb - With: Emergency Department - When: As needed - Reason: Worsening of condition Followup: kb - With: Private Physician - When: 2 - 3 days - Reason: Recheck today's complaints, Continuance of care, Re-evaluation by your physician Discharge Instructions: - Discharge Summary Sheet kb - COVID-19 kb - Viral Illness, Adult kb Forms: - Medication Reconciliation Form kb - Thank You Letter kb - Antibiotic Education kb - Prescription Opioid Use kb - Patient Portal Instructions kb - Leadership Thank You Letter kb Signatures: Dispatcher [employer] Vicki Casas, CURRICULUM DEVELOPER-C LIV-Jessica Muñoz, RN RN cm10
--- NOTE | 2024-01-08 23:36 | ER ---
Nurse's Notes [facility] Name: Shelley Redd Age: 28 yrs Sex: Female : 1995 Arrival Date: 01/08/2024 Time: 22:08 Bed DX3 Private MD: Diagnosis: SARS-associated coronavirus as the cause of diseases classified elsewhere Presentation: 01/07 22:14 Chief complaint: Patient states: Cough and congestion onset today. Pt denies fever and cm10 chills. Coronavirus screen: Client denies travel out of the [place] in the last 14 days. congestion, cough unrelated to allergies. Ebola Screen: Patient denies travel to an Ebola-affected area in the 21 days before illness onset. No symptoms or risks identified at this time. Initial Sepsis Screen: Does the patient meet any 2 criteria? HR > 90 bpm. Does the patient have a suspected source of infection? No. Patient's initial sepsis screen is negative. Risk Assessment: Do you want to hurt yourself or someone else? Patient reports no desire to harm self or others. Onset of symptoms was January 08, 2024. 22:14 Method Of Arrival: Ambulatory cm10 22:14 Acuity: MATHEW 4 cm10 Triage Assessment: 22:16 General: Appears in no apparent distress. comfortable, Behavior is calm, cooperative. cm10 Pain: Complains of pain in chest. Pain: Aggravated by cough. Neuro: No deficits noted. Level of Consciousness is awake, alert, obeys commands, Oriented to person, place, time, situation. Respiratory: No deficits noted. Airway is patent Respiratory effort is even, unlabored, Respiratory pattern is regular, symmetrical. Historical: - Allergies: 22:16 No Known Allergies; cm10 - Home Meds: 22:16 None [Active]; cm10 - PMHx: 22:16 None; cm10 - PSHx: 22:16 Appendectomy; cm10 - Immunization history:: Adult Immunizations up to date. - Social history:: Smoking status: Patient denies any tobacco usage or history of. Screenin:36 [facility] ED Fall Risk Assessment (Adult) History of falling in the last 3 months, cm10 including since admission No falls in past 3 months (0 pts) Confusion or Disorientation No (0 pts) Intoxicated or Sedated No (0 pts) Impaired Gait No (0 pts) Mobility Assist Device Used No (0 pt) Altered Elimination No (0 pt) Score/Fall Risk Level 0 - 2 = Low Risk Oriented to surroundings, Maintained a safe environment, Hourly rounding (assess needs \T\ fall precautionary measures) done. Abuse screen: Denies threats or abuse. Denies injuries from another. Nutritional screening: No deficits noted. Tuberculosis screening: No symptoms or risk factors identified. Assessment: 22:34 General: Appears in no apparent distress. comfortable, Behavior is calm, cooperative. cm10 Neuro: No deficits noted. Level of Consciousness is awake, alert, obeys commands, Oriented to person, place, time, situation. Cardiovascular: No deficits noted. Patient's skin is warm and dry. Respiratory: No deficits noted. Reports cough that is Airway is patent Respiratory effort is even, unlabored, Respiratory pattern is regular, symmetrical, Breath sounds are clear bilaterally. GI: No deficits noted. No signs and/or symptoms were reported involving the gastrointestinal system. : No deficits noted. No signs and/or symptoms were reported regarding the genitourinary system. EENT: No deficits noted. Reports nasal congestion. EENT:. Derm: No deficits noted. Skin is intact, Skin is pink, warm \T\ dry. Musculoskeletal: No deficits noted. No signs and/or symptoms reported regarding the musculoskeletal system. Range of motion: intact in all extremities. 23:49 Reassessment: Patient appears in no apparent distress at this time. Patient and/or jb4 family updated on plan of care and expected duration. Pain level reassessed. Patient is alert, oriented x 3, equal unlabored respirations, skin warm/dry/pink. Vital Signs: 22:14 BP 134 / 107; Pulse 96; Resp 16; Temp 97.1; Pulse Ox 100% on R/A; Weight 127.01 kg; cm10 Height 5 ft. 7 in. ; Pain 6/10; 22:14 Body Mass Index 43.85 (127.01 kg, 170.18 cm) cm10 22:14 Pain Scale: Adult cm10 ED Course: 22:11 Patient arrived in ED. im 22:12 Vicki [facility]C [facility] kb 22:12 Celine Mcintyre is Attending Physician. kb 22:16 Triage completed. cm10 22:16 Arm band placed on Patient placed in an exam room, on a stretcher. cm10 22:20 COVID-19 SARS RT PCR Sent. cm10 22:20 Flu Sent. cm10 22:20 COVID swab sent to lab. Flu and/or RSV swab sent to lab. cm10 22:37 Patient has correct armband on for positive identification. Provided Education on: ER cm10 process and procedures . 23:49 No provider procedures requiring assistance completed. Patient did not have IV access jb4 during this emergency room visit. Administered Medications: No medications were administered Medication: 22:36 VIS not applicable for this client. cm10 Outcome: 23:36 Discharge ordered by . diana 23:49 Discharged to home ambulatory, jb4 23:49 Condition: stable 23:49 Discharge instructions given to patient, Instructed on discharge instructions, follow up and referral plans. Demonstrated understanding of instructions, follow-up care, 23:50 Patient left the ED. jb4 Signatures: Vicki Rodriguez, ACCOUNTING METHODS ANALYST-C ACCOUNTING METHODS ANALYST-Cameron Calzada RN RN jb4 Leann Stevenson Clarissa, RN RN cm10
[2024-01-09 00:23] VITALS: BP 134/107; TEMP 97.1; O2SAT 100
== END ==
LOC: ER 22:08
DX: U07.1 COVID-19 (principal)
CPT/HCPCS: 87635; 87804; 99283